=== PATIENT | male | born 1945 | race Caucasian/White ===

== ENCOUNTER 2022-02-12 15:14 | Emergency (ER) | payer OTHER ==
[2022-02-12 15:32] VITALS: BP 148/70
[2022-02-12] MEDS ORDERED: cephALEXin 250 MG CAPSULE PO STA (15:59)
[2022-02-12] MEDS ORDERED: SULFAMETH/TRIMETH DS 800/160 MG TABLET PO STA (15:59)
[2022-02-12] MEDS ORDERED: MUPIROCIN 2% OINT 1 GM TOP STA (15:59)
--- NOTE | 2022-02-12 16:02 | ED Physician Documentation ---
PD HPI WOUND RECHECK - Stated complaint Stated Complaint: RT LEG AND CHEST WOUND - Chief complaint Chief Complaint: Wound - Histroy obtained from History obtained from: Patient - Additional information Additional information: 76-year-old gentleman with poorly controlled diabetes although he just received a "talking to" from his doctor presents with some wounds that appear infected. He developed a right upper quadrant abdominal wound about a month ago which is improving, over the last 2 to 3 weeks has developed some weeping wounds on the anterior right medellin. He feels fine without systemic illness or fevers. Review of Systems Constitutional: reports: Reviewed and negative Ears: reports: Reviewed and negative Throat: reports: Reviewed and negative Cardiac: reports: Reviewed and negative Respiratory: reports: Reviewed and negative PD PAST MEDICAL HISTORY - Present Medications Home Medications: Ambulatory Orders Medication Instructions Recorded Confirmed Mupirocin 2% Oint [Bactroban 2% 1 applic TOP BID #50 gm 02/12/22 Oint] Sulfamethox/Trimeth 800/160 1 each PO BID #20 tablet 02/12/22 [Bactrim Ds 800/160] cephALEXin [Keflex] 500 mg PO Q6H #40 cap 02/12/22 - Allergies Allergies/Adverse Reactions: Allergies Allergy/AdvReac Type Severity Reaction Status Date / Time No Known Drug Allergies Allergy Verified 02/12/22 15:32 PD ED PE NORMAL - Vitals Vital signs reviewed: Yes - General General: Alert and oriented X 3, No acute distress - Abdomen Abdomen: Normal bowel sounds, Soft, Non tender, Other (There is a scabbed wound on the right upper quadrant abdominal wall without signs of infection or purulence.) - Extremities Extremities: Other (Scattered a few small ulcers with weeping purulent drainage and surrounding cellulitis to the anterior right medellin. Culture obtained during exam.) - Neuro Neuro: Alert and oriented X 3, Normal speech Results - Vitals Vitals: Vital Signs - 24 hr 02/12/22 15:21 Temperature 36.5 C Heart Rate 53 L Respiratory 14 Rate Blood Pressure 148/70 H O2 Saturation 98 PD MEDICAL DECISION MAKING - ED course ED course: 76-year-old gentleman with multiple comorbidities presents with some weeping cellulitis to the right lower extremity which was cultured and he is started on antibiotics and counseled on wound carea pending culture completion. Departure - Departure Disposition: 01 Home, Self Care Clinical Impression: Cellulitis of leg without foot, right Condition: Good Record reviewed to determine appropriate education?: Yes Instructions: ED Infec Skin Cellulitis Prescriptions: Sulfamethox/Trimeth 800/160 [Bactrim Ds 800/160] 1 each PO BID #20 tablet Mupirocin 2% Oint [Bactroban 2% Oint] 1 applic TOP BID #50 gm cephALEXin [Keflex] 500 mg PO Q6H #40 cap Print Language: Welsh Comments: You were seen today for cellulitis, this is an infection of the skin. We are performing a wound culture, the results should be done in 48-72 hours. If antibiotic change is necessary we will call you. Return if worse in the meantime, especially if you develop increased pain, fevers, cannot keep down the medication. Otherwise follow-up with your physician in approximately 2-3 days. In the meantime apply the antibiotic once a day after cleansing and then a nonstick dressing such as Telfa from the drugstore and a wrap. Discharge Date/Time: 02/12/22 16:16
== END 2022-02-12 16:16 | disposition home or self-care (01) ==
LOC: ED 15:14
DX: L03.115 Cellulitis of right lower limb (principal)
CPT/HCPCS: 87070; 87077; 87205; 99283; A9270

== ENCOUNTER 2022-03-23 04:08 | Outpatient (CLI) | payer OTHER | END 2022-03-23 04:09 | disposition critical access hospital (66) | LOC: EMS 04:08 | DX: R06.00 Dyspnea, unspecified (principal); R05.9 Cough, unspecified; R07.89 Other chest pain | CPT/HCPCS: A0425; A0427 ==

== ENCOUNTER 2022-03-23 04:17 | Inpatient (IN) | payer OTHER ==
--- NOTE | 2022-03-23 04:31 | ED Physician Documentation ---
PD HPI DYSPNEA - Stated complaint Stated Complaint: SOA, COUGH - Chief complaint Chief Complaint: Resp - History obtained from History obtained from: Patient, EMS - Additional information Additional information: Patient is 76-year-old male presenting to the emergency department brought in by EMS with shortness of breath. Past medical significant for atrial fibrillation for which he takes a daily aspirin, diabetes, as well as a history of myasthenia gravis for which he is not currently on medication. Reports woke this morning with acute onset shortness of breath with cough. Reports he had chest discomfort 3/10 associated with coughing. Denies any fever at home. Denies any nausea, vomiting or diarrhea. Reports chronic lower extremity edema for the last few years but denies any acute leg swelling. Denies any history of COPD or heart failure. EMS report initial oxygen saturations in the 70s on room air. He was started on a nonrebreather for oxygen support prior to arrival. Review of Systems Ten Systems: 10 systems reviewed and negative Constitutional: denies: Fever Eyes: denies: Loss of vision Ears: denies: Loss of hearing Nose: denies: Rhinorrhea / runny nose Throat: denies: Dental pain / toothache Cardiac: reports: Pedal edema Respiratory: reports: Dyspnea, Cough. denies: Hemoptysis, Wheezing GI: denies: Abdominal Pain, Nausea, Vomiting, Constipation, Diarrhea : denies: Dysuria PD PAST MEDICAL HISTORY - Present Medications Home Medications: Ambulatory Orders Medication Instructions Recorded Confirmed Mupirocin 2% Oint [Bactroban 2% 1 applic TOP BID #50 gm 02/12/22 Oint] Sulfamethox/Trimeth 800/160 1 each PO BID #20 tablet 02/12/22 [Bactrim Ds 800/160] cephALEXin [Keflex] 500 mg PO Q6H #40 cap 02/12/22 - Allergies Allergies/Adverse Reactions: Allergies Allergy/AdvReac Type Severity Reaction Status Date / Time Penicillins AdvReac Headache Verified 03/23/22 04:25 PD ED PE NORMAL - Vitals Vital signs reviewed: Yes - General General: Alert and oriented X 3 - HEENT HEENT: Atraumatic, PERRL - Neck Neck: Supple, no meningeal sign - Cardiac Cardiac: Strong equal pulses, Other (Irregularly irregular pulses.) - Respiratory Respiratory: Other (Bi basilar rales) - Abdomen Abdomen: Normal bowel sounds, Non tender - Male Male : Deferred - Rectal Rectal: Deferred - Derm Derm: Normal color - Extremities Extremities: No deformity - Neuro Neuro: Alert and oriented X 3, drafter heating and ventilating 2-12 intact, No motor deficit, No sensory deficit, Normal speech - Psych Psych: Normal mood Results - Vitals Vitals: Vital Signs - 24 hr 03/23/22 03/23/22 04:20 06:24 Temperature 36.1 C L Heart Rate 81 80 Respiratory 23 21 Rate Blood Pressure 161/100 H 147/78 H O2 Saturation 95 94 Oxygen O2 Source Nasal cannula - EKG (time done) 0421 Rate: Rate (enter#) (93) Rhythm: Atrial fibrillation Cameron: Normal Intervals: Normal WA, LBBB. No: Prolonged QT Ischemia: Non specific changes, Other (Frequent PVCs) Compare to prior EKG: Old EKG unavailable - Labs Labs: Laboratory Tests 03/23/22 03/23/22 03/23/22 04:20 04:35 04:35 WBC 12.9 H RBC 5.03 Hgb 15.2 Hct 47.9 MCV 95.2 H MCH 30.2 MCHC 31.7 L RDW 14.5 Plt Count 303 MPV 10.0 Neut # (Auto) 11.3 H Lymph # (Auto) 0.9 L Shasta # (Auto) 0.5 Eos # (Auto) 0.1 Baso # (Auto) 0.1 Absolute Nucleated RBC 0.00 Nucleated RBC % 0.0 PT INR VBG pH VBG pCO2 VBG pO2 VBG HCO3 VBG Total CO2 VBG O2 Saturation VBG Base Excess Sodium 143 Potassium 2.9 L Chloride 96 L Carbon Dioxide 36 H Anion Gap 11.0 BUN 23 H Creatinine 1.2 Estimated GFR (MDRD) 59 L Glucose 170 H Lactic Acid Calcium 9.8 Magnesium 1.9 Total Bilirubin 1.2 H AST 23 ALT 21 Alkaline Phosphatase 109 Troponin I High Sens B-Natriuretic Peptide Total Protein 8.4 H Albumin 4.0 Globulin 4.4 H Albumin/Globulin Ratio 0.9 L Lipase 40 TSH Nasal Adenovirus (PCR) NOT DETECTED Nasal B. parapertussis DNA (PCR) NOT DETECTED Nasal Coronavir 229E PCR NOT DETECTED Nasal Coronavir HKU1 PCR NOT DETECTED Nasal Coronavir NL63 PCR NOT DETECTED Nasal Coronavir OC43 PCR NOT DETECTED Nasal Enterovir/Rhinovir PCR NOT DETECTED Nasal Influenza B PCR NOT DETECTED Nasal Influenza A PCR NOT DETECTED Nasal Parainfluen 1 PCR NOT DETECTED Nasal Parainfluen 2 PCR NOT DETECTED Nasal Parainfluen 3 PCR NOT DETECTED Nasal Parainfluen 4 PCR NOT DETECTED Nasal RSV (PCR) NOT DETECTED Nasal B.pertussis DNA PCR NOT DETECTED Nasal C.pneumoniae (PCR) NOT DETECTED Veto Human Metapneumo PCR NOT DETECTED Nasal M.pneumoniae (PCR) NOT DETECTED Nasal SARS-CoV-2 (PCR) NOT DETECTED Ethyl Alcohol < 5.0 03/23/22 03/23/22 03/23/22 04:35 04:35 04:35 WBC RBC Hgb Hct MCV MCH MCHC RDW Plt Count MPV Neut # (Auto) Lymph # (Auto) Shasta # (Auto) Eos # (Auto) Baso # (Auto) Absolute Nucleated RBC Nucleated RBC % PT INR VBG pH VBG pCO2 VBG pO2 VBG HCO3 VBG Total CO2 VBG O2 Saturation VBG Base Excess Sodium Potassium Chloride Carbon Dioxide Anion Gap BUN Creatinine Estimated GFR (MDRD) Glucose Lactic Acid Calcium Magnesium Total Bilirubin AST ALT Alkaline Phosphatase Troponin I High Sens 26.5 H* B-Natriuretic Peptide 211 H Total Protein Albumin Globulin Albumin/Globulin Ratio Lipase TSH 1.59 Nasal Adenovirus (PCR) Nasal B. parapertussis DNA (PCR) Nasal Coronavir 229E PCR Nasal Coronavir HKU1 PCR Nasal Coronavir NL63 PCR Nasal Coronavir OC43 PCR Nasal Enterovir/Rhinovir PCR Nasal Influenza B PCR Nasal Influenza A PCR Nasal Parainfluen 1 PCR Nasal Parainfluen 2 PCR Nasal Parainfluen 3 PCR Nasal Parainfluen 4 PCR Nasal RSV (PCR) Nasal B.pertussis DNA PCR Nasal C.pneumoniae (PCR) Vteo Human Metapneumo PCR Nasal M.pneumoniae (PCR) Nasal SARS-CoV-2 (PCR) Ethyl Alcohol 03/23/22 03/23/22 03/23/22 04:53 04:53 04:53 WBC RBC Hgb Hct MCV MCH MCHC RDW Plt Count MPV Neut # (Auto) Lymph # (Auto) Shasta # (Auto) Eos # (Auto) Baso # (Auto) Absolute Nucleated RBC Nucleated RBC % PT 13.2 H INR 1.2 VBG pH 7.378 VBG pCO2 61.0 H VBG pO2 18.4 L VBG HCO3 35.1 H VBG Total CO2 37.0 H VBG O2 Saturation 27.8 L VBG Base Excess 7.6 H Sodium Potassium Chloride Carbon Dioxide Anion Gap BUN Creatinine Estimated GFR (MDRD) Glucose Lactic Acid 1.8 Calcium Magnesium Total Bilirubin AST ALT Alkaline Phosphatase Troponin I High Sens B-Natriuretic Peptide Total Protein Albumin Globulin Albumin/Globulin Ratio Lipase TSH Nasal Adenovirus (PCR) Nasal B. parapertussis DNA (PCR) Nasal Coronavir 229E PCR Nasal Coronavir HKU1 PCR Nasal Coronavir NL63 PCR Nasal Coronavir OC43 PCR Nasal Enterovir/Rhinovir PCR Nasal Influenza B PCR Nasal Influenza A PCR Nasal Parainfluen 1 PCR Nasal Parainfluen 2 PCR Nasal Parainfluen 3 PCR Nasal Parainfluen 4 PCR Nasal RSV (PCR) Nasal B.pertussis DNA PCR Nasal C.pneumoniae (PCR) Veto Human Metapneumo PCR Nasal M.pneumoniae (PCR) Nasal SARS-CoV-2 (PCR) Ethyl Alcohol PD MEDICAL DECISION MAKING - ED course Complexity details: reviewed results, re-evaluated patient, d/w patient, d/w family ED course: Patient is a 76-year-old male presenting to the emergency department with acute hypoxic respiratory failure. Presents via EMS who report patient had initial oxygen saturations in the 70s prior to arrival. He reports acute shortness of breath with cough that began this morning. His past medical is significant for diabetes, chronic atrial fibrillation, myasthenia gravis. [facility] Patient initially presented in A. fib with a rate of approximately 95. His EKG demonstrated a left bundle branch block as well as some other nonspecific ST and T wave abnormalities without Scarbossa Criterion. Shortly after arrival to the emergency department we were able to titrate the patient's oxygen down to 2 L nasal cannula. Chest x-ray demonstrates significant right-sided airspace disease. I did order for blood cultures and antibiotics including Rocephin and azithromycin. Patient's lab work demonstrated a leukocytosis with leftward shift as well as a hypokalemia. Potassium Repletion initiated in the emergency department. Patient also had a minimal elevation in high-sensitivity troponin on arrival to the emergency department. 2-hour repeat is pending at this time. COVID-negative. I had a discussion concerning goals of care with patient and patient's was present at bedside. They report that he is full code and would want all interventions. At this time I will be signing him out to the oncoming physician. Please see their documentation for further detail. - Critical Care Time(min): 31 Time Includes: Direct patient care, Reassess patient Data interpretation: Labs, Pulse ox, CXR Departure - Departure Clinical Impression: Respiratory failure, NSTEMI (non-ST elevated myocardial infarction), Pneumonia, Hypokalemia, Sepsis
[2022-03-23] MEDS ORDERED: cefTRIAXone 1 GM in SODIUM CHLORIDE 0.9% MINIBAG 100 ML IV STA (04:43)
[2022-03-23] MEDS ORDERED: AZITHROMYCIN INJ 500 MG in SODIUM CHLORIDE 0.9% 250 ML IV STA (04:43)
[2022-03-23 04:46] LABS: BASOPHILS # (AUTO) 0.1 10^3/uL (0.0-0.1); BASOPHILS % (AUTO) 0.5 %; EOSINOPHILS # (AUTO) 0.1 10^3/uL (0.0-0.7); HCT - HEMATOCRIT 47.9 % (42.0-52.0); HGB - HEMOGLOBIN 15.2 g/dL (14.0-18.0); LYMPHOCYTES # (AUTO) 0.9 10^3/uL (1.5-3.5); LYMPHOCYTES % (AUTO) 6.8 %; MEAN CORPUSCULAR HEMOGLOBIN 30.2 pg (27.0-31.0); MEAN CORPUSCULAR HGB CONC 31.7 g/dL (32.0-36.0); MEAN CORPUSCULAR VOLUME 95.2 fL (80.0-94.0); MONOCYTES # (AUTO) 0.5 10^3/uL (0.0-1.0); MONOCYTES % (AUTO) 3.6 %; NEUTROPHILS # (AUTO) 11.3 10^3/uL (1.5-6.6); NEUTROPHILS % (AUTO) 87.9 %; PLT - PLATELET COUNT 303 10^3/uL (130-450); RED BLOOD COUNT 5.03 10^6/uL (4.70-6.10); RED CELL DISTRIBUTION WIDTH 14.5 % (12.0-15.0); WHITE BLOOD COUNT 12.9 x10^3/uL (4.8-10.8)
[2022-03-23 05:04] LABS: ALBUMIN/GLOBULIN RATIO 0.9 (1.0-2.2); ALKALINE PHOSPHATASE 109 IU/L (42-121); ALT ALANINE AMINOTRANSFERASE 21 IU/L (10-60); AST ASPARTATE AMINOTRANSFERASE 23 IU/L (10-42); BILIRUBIN,TOTAL 1.2 mg/dL (0.2-1.0); BUN - BLOOD UREA NITROGEN 23 mg/dL (6-20); CALCIUM 9.8 mg/dL (8.5-10.3); CARBON DIOXIDE - CO2 36 mmol/L (21-32); CHLORIDE 96 mmol/L (101-111); CREATININE 1.2 mg/dL (0.6-1.2); ETOH - ETHANOL < 5.0 mg/dL; GFR - MDRD 59 (>89); GLUCOSE 170 mg/dL (70-100); LIPASE 40 U/L (22-51); MAGNESIUM 1.9 mg/dL (1.7-2.8); POTASSIUM 2.9 mmol/L (3.5-5.0); SODIUM 143 mmol/L (135-145); TOTAL PROTEIN 8.4 g/dL (6.7-8.2)
[2022-03-23] MEDS ORDERED: POTASSIUM CHLOR 10 MEQ/100 ML 10 MEQ/100 ML BAG IV STA (05:06)
[2022-03-23 05:10] LABS: INR 1.2 (0.8-1.2); PT - PROTHROMBIN TIME 13.2 secs (9.9-12.6)
[2022-03-23] MEDS ORDERED: SODIUM CHLORIDE 0.9% 500 ML IV STA (05:17)
[2022-03-23 05:19] LABS: VBG PH 7.378 (7.31-7.41)
[2022-03-23 05:20] LABS: VBG BASE EXCESS 7.6 mmol/L (-2 - +2); VBG HCO3 35.1 mmol/L (23-28); VBG OXYGEN SATURATION 27.8 % (60-80); VBG PO2 18.4 mmHg (25-47)
[2022-03-23] MEDS ORDERED: cefTRIAXone 1 GM VIAL ONE (05:26)
[2022-03-23] MEDS ORDERED: ONDANSETRON 4 MG/2 ML VIAL IVP STA (05:58)
[2022-03-23] MEDS ORDERED: MORPHINE 2 MG/ML CARPUJECT IVP STA ×2 (05:58→06:46)
[2022-03-23 06:06] LABS: B. PARAPERTUSSIS- RESP PCR PAN NOT DETECTED; B. PERTUSSIS- RESP PCR PANEL NOT DETECTED; C. PNEUMONIAE- RESP PCR PANEL NOT DETECTED; CORONAVIRUS 229E-RESP PCR NOT DETECTED; CORONAVIRUS HKU1-RESP PCR NOT DETECTED; CORONAVIRUS NL63-RESP PCR NOT DETECTED; CORONAVIRUS OC43-RESP PCR NOT DETECTED; HUMAN METAPNEUMOVIRUS NOT DETECTED; INFLUENZA A- RESP PCR PANEL NOT DETECTED; INFLUENZA B - RESP PCR PANEL NOT DETECTED; M. PNEUMONIAE- RESP PCR PANEL NOT DETECTED; PARAINFLUENZA VIRUS 1 NOT DETECTED; PARAINFLUENZA VIRUS 2 NOT DETECTED; PARAINFLUENZA VIRUS 3 NOT DETECTED; PARAINFLUENZA VIRUS 4 NOT DETECTED; RHINOVIRUS/ENTEROVIRUS NOT DETECTED; RSV- RESP PCR PANEL NOT DETECTED; SARS-CoV-2 -RESP PCR PANEL NOT DETECTED
--- NOTE | 2022-03-23 07:31 | XRAY Report ---
PROCEDURE: Chest 1 View X-Ray INDICATIONS: chest pain TECHNIQUE: One view of the chest was acquired. COMPARISON: None FINDINGS: Surgical changes and devices: None. Lungs and pleura: No pleural effusions or pneumothorax. Patchy consolidation in the right lung. Mediastinum: Mediastinal contours appear normal. Heart size is normal. Bones and chest wall: No suspicious bony lesions. Overlying soft tissues appear unremarkable. IMPRESSION: Extensive right lung pneumonia. Recommend follow-up imaging to resolution of the pneumonia to exclude underlying neoplastic process. Reviewed by: Laura Beltran MD, PhD on 03/23/2022 7:30 AM PDT Approved by: Laura Beltran MD, PhD on 03/23/2022 7:30 AM PDT Station ID: [id number]
[2022-03-23] MEDS ORDERED: ONDANSETRON 4 MG/2 ML VIAL IVP PRN (13:35)
[2022-03-23] MEDS ORDERED: SODIUM CHLORIDE FLUSH 0.9% 10 ML SYRINGE IVP PRN (13:35)
[2022-03-23] MEDS ORDERED: ACETAMINOPHEN 325 MG TABLET PO PRN (13:35)
[2022-03-23] MEDS ORDERED: POTASSIUM CHLORIDE 20 MEQ TABLET PO STA (13:39)
[2022-03-23] MEDS ORDERED: MAGNESIUM SULFATE 2 GRAM 2 GM/50 ML BAG IV ONE (13:40)
--- NOTE | 2022-03-23 13:41 | HISTORY & PHYSICAL EXAMINATION ---
Chief Complaint - Chief Complaint Chief Complaint: dyspnea, hypoxia, cough History of Present Illness - Admitted From Admitted From:: [facility] ED - History Obtained From Records Reviewed: yes History obtained from: patient - History of Present Illness HPI Comment/Other: Patient is a 76-year-old male with medical history significant for myasthenia gravis, diabetes mellitus type 2, prostate cancer status postradiation, hypertension, atrial fibrillation who presented to the ED with complaint of a nonproductive persistent cough which started in the middle of the night. He was also unable to catch his breath. It appeared he called the call line for his PCP and was advised to go to the emergency department. He was noted to have an oxygen saturation of 70% on room air. He had eaten a lot of ice cream that night prior to going to bed and thought the coughing was due to the late night eating. In the ED work-up included a chest x-ray which showed a right lung pneumonia. He also had a white blood cell count of 12.2. He explains that as a result of his myasthenia gravis, he has to be careful when he eats otherwise he would choke. As a result of the above he was presented for admission for further treatment. At bedside he is resting comfortably. He denies chest pain, abdominal pain, nausea or vomiting. He also denies fever or chills. He has significantly dry oral mucosa. History - Past Medical History Cardiovascular: reports: Hypertension, High cholesterol, Atrial fibrillation Respiratory: reports: CPAP use Neuro: reports: Peripheral neuropathy, Other (Myastenia gravis) Endocrine/Autoimmune: reports: Type 2 diabetes, Other : reports: Other Musculoskeletal: reports: Osteoarthritis, Chronic back pain MRSA Hx?: No Other Past Medical History: myasthenia gravis. prostate CA - Past Surgical History Ortho: reports: Spine surgery Other past surgical history: Right arm surgery, left foot surgery, right knee surgery, left shoulder surgery - Family & Social History Family History Comment/Other: Mother from complications of diabetes. His brother from an CT. Social History Notes: He lives at home with his . He does not consume tobacco products or recreational substances. He drinks alcohol occasionally. - POLST Patient has POLST: No POLST Status: Full Code Meds/Allgy - Home Medications Home Medications: Ambulatory Orders Medication Instructions Recorded Confirmed Mupirocin 2% Oint [Bactroban 2% 1 applic TOP BID #50 gm 02/12/22 Oint] Sulfamethox/Trimeth 800/160 1 each PO BID #20 tablet 02/12/22 [Bactrim Ds 800/160] cephALEXin [Keflex] 500 mg PO Q6H #40 cap 02/12/22 - Allergies Allergies/Adverse Reactions: Allergies Allergy/AdvReac Type Severity Reaction Status Date / Time Penicillins AdvReac Headache Verified 03/23/22 04:25 Review of Systems - Constitutional Constitutional: reports: Fatigue. denies: Fever, Chills, Weakness - Eyes Eyes: denies: Pain, Vision loss - Ears, Nose & Throat Ears, Nose & Throat: denies: Vertigo, Sore throat - Cardiovascular Cariovascular: reports: Irregular heart rate, Edema. denies: Chest pain - Respiratory Respiratory: reports: Cough, SOB at rest. denies: Sputum production - Gastrointestinal Gastrointestinal: reports: Abdominal distention. denies: Abdominal pain, Constipation, Diarrhea, Nausea, Vomiting - Genitourinary Genitourinary: denies: Dysuria, Frequency, Urgency, Hematuria - Musculoskeletal Musculoskeletal: reports: Back pain. denies: Muscle pain, Muscle aches - Integumentary Integumentary: denies: Rash, Pruritis, Lesions - Neurological Neurological: denies: Focal weakness, Headache - Psychiatric Psychiatric: denies: Depression, Anxiety - Endocrine Endocrine: denies: Polyuria, Polydypsia, Polyphagia - Hematologic/Lymphatic Hematologic/Lymphatic: denies: Anemia, Bruising, Petechiae Prior Level of Functionality: Patient is independent of activities of daily living. Exam - Vital Signs Vital Signs: Vital Signs x48h Pulse Resp BP Pulse Ox 03/23/22 12:36 64 19 112/84 H 97 03/23/22 10:19 72 19 93/65 93 03/23/22 08:26 83 21 120/71 96 03/23/22 06:24 80 21 147/78 H 94 - Physical Exam General Appearance: positive: Alert, Mild distress Eyes Bilateral: positive: PERRL, EOMI ENT: positive: Dry mucous membranes Neck: positive: No JVD, Trachea midline Respiratory: positive: Chest non-tender, Wheezes, Rales Cardiovascular: positive: Irregularly irregular. negative: Tachycardia Abdomen: positive: Non-tender, No organomegaly, Nml bowel sounds. negative: No distention, Guarding, Rebound Back: positive: Nml inspection Skin: positive: No rash, Warm, Dry Extremities: positive: Pedal edema (trace to +1) Neurologic/Psychiatric: positive: Oriented x3, Mood/affect nml Conclusion/Plan - Problem List (1) Pneumonia Conclusion/Plan: Right lung Aspiration vs Community Acquired Patient has risk of aspiration due to Myastenia gravis WBC 12.2. Blood cultures pending On Rocephin, Azithromycin and Flagyl (2) Acute respiratory failure with hypoxia Conclusion/Plan: Likely 2/2 pneumonia O2Sat at presentation was 70% on r/a Currently on 2L O2 via nasal canula with O2Sat of 95% On antibiotics for pneumonia (3) Myasthenia gravis Conclusion/Plan: On pyridostigmine 60mg po bid (4) Atrial fibrillation Conclusion/Plan: normal rate Not on any medication (5) Diabetes mellitus Conclusion/Plan: Carb-controlled diet SSI. Accu check qachs Qualifiers: Diabetes mellitus type: type 2 (6) Elevated troponin I level Conclusion/Plan: Likely demand ischemia from respiratory failure and hypoxia Trop trend was 26.5>>31>>46.1. Patient denies any chest pain or angina equivalen ce On baby aspirin daily, atorvastatin and losartan - Lab Results Fish Bones: 03/23/22 04:35 03/23/22 04:35 Core Measures - DVT/VTE - Prophylaxis VTE/DVT Device ordered at admit?: Yes VTE/DVT Prophylaxis med ordered at admit?: Yes
[2022-03-23] MEDS ORDERED: HYDROmorphone 1 MG/ML CARPUJECT IVP STA (13:55)
[2022-03-23 14:47] LABS: BILIRUBIN,URINE NEGATIVE (NEGATIVE); GLUCOSE, URINE (UA) NEGATIVE (NEGATIVE); KETONES,URINE (UA) NEGATIVE (NEGATIVE); LEUKOCYTE ESTERASE, URINE NEGATIVE (NEGATIVE); NITRITE,URINE NEGATIVE (NEGATIVE); OCCULT BLOOD,URINE TRACE-INTA (NEGATIVE); PH,URINE 5.5 PH (5.0-7.5); PROTEIN,URINE NEGATIVE (NEGATIVE); UROBILINOGEN,URINE 2 E.U./dL (NORMAL)
[2022-03-23 14:51] LABS: CLARITY,URINE CLEAR (CLEAR)
[2022-03-23] MEDS: metroNIDAZOLE 500 MG/100 ML 500 MG/100 ML BAG IV SCH ×2 (16:51→23:30)
[2022-03-23] MEDS: SODIUM CHLORIDE FLUSH 0.9% 10 ML SYRINGE IVP SCH ×2 (16:52→23:31)
[2022-03-23] MEDS: INSULIN ASPART 300 UNIT/3 ML PEN SUBQ SCH ×2 (17:00→23:27)
[2022-03-23] MEDS: ATORVASTATIN 40 MG TABLET PO SCH (23:27)
[2022-03-23] MEDS: GABAPENTIN 300 MG CAPSULE PO SCH (23:27)
[2022-03-24 05:19] LABS: BASOPHILS # (AUTO) 0.1 10^3/uL (0.0-0.1); BASOPHILS % (AUTO) 0.6 %; EOSINOPHILS # (AUTO) 0.3 10^3/uL (0.0-0.7); EOSINOPHILS % (AUTO) 2.4 %; HCT - HEMATOCRIT 36.4 % (42.0-52.0); HGB - HEMOGLOBIN 11.8 g/dL (14.0-18.0); LYMPHOCYTES # (AUTO) 1.2 10^3/uL (1.5-3.5); MEAN CORPUSCULAR HEMOGLOBIN 29.9 pg (27.0-31.0); MEAN CORPUSCULAR HGB CONC 32.4 g/dL (32.0-36.0); MEAN CORPUSCULAR VOLUME 92.4 fL (80.0-94.0); MEAN PLATELET VOLUME 10.2 fL (7.4-11.4); MONOCYTES % (AUTO) 7.7 %; NEUTROPHILS # (AUTO) 9.7 10^3/uL (1.5-6.6); NEUTROPHILS % (AUTO) 79.1 %; PLT - PLATELET COUNT 251 10^3/uL (130-450); RED BLOOD COUNT 3.94 10^6/uL (4.70-6.10); RED CELL DISTRIBUTION WIDTH 14.6 % (12.0-15.0); WHITE BLOOD COUNT 12.3 x10^3/uL (4.8-10.8)
[2022-03-24] MEDS: metroNIDAZOLE 500 MG/100 ML 500 MG/100 ML BAG IV SCH ×3 (05:24→21:15)
[2022-03-24 05:31] LABS: CALCIUM 8.5 mg/dL (8.5-10.3); CREATININE 1.1 mg/dL (0.6-1.2); POTASSIUM 2.8 mmol/L (3.5-5.0)
[2022-03-24] MEDS ORDERED: POTASSIUM CHLORIDE 20 MEQ TABLET PO STA (07:39)
--- NOTE | 2022-03-24 07:42 | PROVIDER PROGRESS NOTE ---
Assessment/Plan - Problem List (1) Pneumonia Assessment/Plan: Patient is currently breathing comfortably on room air with oxygen saturation 92%. White blood cell count was unchanged from yesterday at 12.3. He is afebrile. Continue Rocephin, azithromycin and Flagyl. An incentive spirometer provided. DuoNebs as needed. (2) Pleuritic chest pain Assessment/Plan: Patient complained of chest pain this morning. EKG showed atrial fibrillation. Troponin was normal at 19. He was given 3 doses of sublingual nitroglycerin with no improvement. This pain is likely pleuritic pain related to his pneumonia. He was given morphine with significant relief. Patient encouraged to continue using incentive spirometer. (3) Acute respiratory failure with hypoxia Assessment/Plan: Likely 2/2 Pneumonia. Improving/resolved. On room air with oxygen saturation 92%. (4) Myasthenia gravis Assessment/Plan: Will continue pyridostigmine at home dose (5) Atrial fibrillation Assessment/Plan: Regular rate with occasional bradycardia. Patient is not on rate controlling medication. He does not take a blood thinner. (6) Diabetes mellitus Qualifiers: Diabetes mellitus type: type 2 Assessment/Plan: Patient's metformin held. On sliding scale insulin with Accu-Cheks q. ACH S. (7) Elevated troponin I level Assessment/Plan: Likely secondary to demand ischemia due to hypoxia. Resolved. Last troponin check was 19.1. - Current Meds Current Meds: Current Medications Generic Name Dose Route Start Last Admin Trade Name Freq PRN Reason Stop Dose Admin Atorvastatin Calcium 20 mg 03/23/22 21:00 03/23/22 23:27 Atorvastatin 40 Mg Tablet PO 20 mg QPM ANA Administration Gabapentin 300 mg 03/23/22 21:00 03/23/22 23:27 Gabapentin 300 Mg Capsule PO 300 mg BID ANA Administration Metronidazole 500 mg in 100 mls @ 100 mls/hr 03/23/22 14:00 03/24/22 06:56 Flagyl 500 Mg/100 Ml IV Infused Q8H ANA Infusion Insulin Aspart 1 - 5 unit 03/23/22 17:00 03/23/22 23:27 Insulin Aspart 300 Unit/3 Ml Pen SUBQ Not Given 0800,1200,1700,2100 ANA Protocol Sodium Chloride 10 ml 03/23/22 17:00 03/23/22 23:31 Sodium Chloride Flush 0.9% 10 Ml Syringe IVP 10 ml 0100,0900,1700 ANA Administration - Lab Result Fish Bone Diagrams: 03/24/22 04:44 03/24/22 04:44 - Additional Planning My Orders: My Active Orders 03/23/22 13:35 Activity Orders [RC] Q2HR IO [RC] IOSHIFT Incentive Spirometry - RT [RC] .TID Initiate Bowel Care Protocol [RC] .protocol Initiate Line Care Protocol [RC] QSHIFT Initiate Personal Care Protoco [RC] .protocol Oxygen Therapy [RC] .PRN Telemetry- [RC] Q4HR Vital Signs [RC] 0800,1600,0000 Acetaminophen [Tylenol] 650 mg PO Q4HR PRN Ondansetron Inj [Zofran Inj] 4 mg IVP Q6HR PRN Sodium Chloride Flush 0.9% [Normal Saline Flush 0.9%] 10 ml IVP PRN PRN Code Status [OTHERS] Routine Condition of Patient [OTHERS] Routine DVT Prophylaxis [OTHERS] Routine 03/23/22 14:00 metroNIDAZOLE 500 MG/100 ML [Flagyl 500 mg/100 ml] 500 mg in 100 ml IV Q8H 03/23/22 16:01 Blood Glucose Checks - Eating [RC] 0800,1200,1700,2100 Initiate Hypoglycemia Protocol [RC] .protocol 03/23/22 Dinner Carb-controlled Diet [DIET] 03/23/22 17:00 Insulin Aspart [NovoLOG] 1 - 5 unit SUBQ 0800,1200,1700,2100 Sodium Chloride Flush 0.9% [Normal Saline Flush 0.9%] 10 ml IVP 0100,0900,1700 03/23/22 21:00 Atorvastatin [Lipitor] 20 mg PO QPM Gabapentin [Neurontin] 300 mg PO BID 03/24/22 07:39 Potassium Chloride [K-Dur] 20 meq PO ONCE STA 03/24/22 07:40 MAGNESIUM [CHEM] Stat 03/24/22 08:00 Potassium Chlor 10 Meq/100 ml [Potassium Chloride] 10 meq in 100 ml IV Q1H 03/24/22 09:00 Aspirin EC [Ecotrin] 81 mg PO DAILY Azithromycin Inj [Zithromax Inj] 500 mg Sodium Chloride 0.9% [Normal Saline 0.9%] 250 ml IV DAILY Enoxaparin [Lovenox] 40 mg SUBQ DAILY Losartan [Cozaar] 50 mg PO DAILY cefTRIAXone [Rocephin] 1 gm Sodium Chloride 0.9% Minibag [Normal Saline 0.9% Minibag] 100 ml IV DAILY 03/25/22 05:00 BMP - BASIC METABOLIC PANEL [CHEM] DAILYLAB CBC - COMP BLD CT W/AUTO DIFF [HEME] DAILYLAB MAGNESIUM [CHEM] DAILYLAB 03/26/22 05:00 BMP - BASIC METABOLIC PANEL [CHEM] DAILYLAB CBC - COMP BLD CT W/AUTO DIFF [HEME] DAILYLAB 03/27/22 05:00 BMP - BASIC METABOLIC PANEL [CHEM] DAILYLAB CBC - COMP BLD CT W/AUTO DIFF [HEME] DAILYLAB 03/28/22 05:00 BMP - BASIC METABOLIC PANEL [CHEM] DAILYLAB CBC - COMP BLD CT W/AUTO DIFF [HEME] DAILYLAB Subjective - Subjective Patient Reports: Other (He was resting comfortably in the bedside recliner at time of exam. Reports breathing better. Later in the morning he complained of chest pain.) Objective Vital Signs: Vital Signs - 24 hr 03/23/22 03/23/22 03/23/22 08:26 10:19 12:36 Temperature Heart Rate 83 72 64 Heart Rate [ Brachial] Heart Rate [ Monitoring electrodes] Respiratory 21 19 19 Rate Blood Pressure 120/71 93/65 112/84 H Blood Pressure [Right Brachial artery] O2 Saturation 96 93 97 03/23/22 03/23/22 03/24/22 15:00 20:49 00:00 Temperature 37.4 C 36.9 C 36.4 C L Heart Rate Heart Rate [ 67 85 51 L Brachial] Heart Rate [ Monitoring electrodes] Respiratory 18 21 18 Rate Blood Pressure Blood Pressure 143/77 H 127/60 112/66 [Right Brachial artery] O2 Saturation 95 96 98 03/24/22 03/24/22 05:00 07:35 Temperature 36.7 C 36.9 C Heart Rate Heart Rate [ 65 Brachial] Heart Rate [ 53 L Monitoring electrodes] Respiratory 18 16 Rate Blood Pressure Blood Pressure 130/76 126/67 [Right Brachial artery] O2 Saturation 95 97 Oxygen O2 Source Nasal cannula I&O (Last 24 Hrs): Intake and Output Totals x24h 03/22/22 03/23/22 03/24/22 23:59 23:59 23:59 Intake Total 2140 300 Balance 2140 300 General: Alert, Oriented x3, Moderate distress HEENT: PERRLA, EOMI Neck: Supple, No JVD Neuro: Alert, Non Focal, Oriented Times 3 Cardiovascular: Other (irregularly iregular, bradycar) Respiratory: Other (mild crackles, pleuritic chest pain) Abdomen: Normal bowel sounds, Soft, No tenderness, No masses Extremities: No clubbing, No cyanosis, No edema Skin: No rashes, No breakdown, No significant lesion - Results Results: Laboratory Results WBC 12.3 x10^3/uL (4.8-10.8) H 03/24/22 04:44 RBC 3.94 10^6/uL (4.70-6.10) L 03/24/22 04:44 Hgb 11.8 g/dL (14.0-18.0) L 03/24/22 04:44 Hct 36.4 % (42.0-52.0) L 03/24/22 04:44 MCV 92.4 fL (80.0-94.0) 03/24/22 04:44 MCH 29.9 pg (27.0-31.0) 03/24/22 04:44 MCHC 32.4 g/dL (32.0-36.0) 03/24/22 04:44 RDW 14.6 % (12.0-15.0) 03/24/22 04:44 Plt Count 251 10^3/uL (130-450) 03/24/22 04:44 MPV 10.2 fL (7.4-11.4) 03/24/22 04:44 Neut # (Auto) 9.7 10^3/uL (1.5-6.6) H 03/24/22 04:44 Lymph # (Auto) 1.2 10^3/uL (1.5-3.5) L 03/24/22 04:44 [place] # (Auto) 1.0 10^3/uL (0.0-1.0) 03/24/22 04:44 Eos # (Auto) 0.3 10^3/uL (0.0-0.7) 03/24/22 04:44 Baso # (Auto) 0.1 10^3/uL (0.0-0.1) 03/24/22 04:44 Absolute Nucleated RBC 0.00 x10^3/uL 03/24/22 04:44 Nucleated RBC % 0.0 /100WBC 03/24/22 04:44 PT 13.2 secs (9.9-12.6) H 03/23/22 04:53 INR 1.2 (0.8-1.2) 03/23/22 04:53 VBG pH 7.378 (7.31-7.41) 03/23/22 04:53 VBG pCO2 61.0 mmHg (41-51) H 03/23/22 04:53 VBG pO2 18.4 mmHg (25-47) L 03/23/22 04:53 VBG HCO3 35.1 mmol/L (23-28) H 03/23/22 04:53 VBG Total CO2 37.0 mmol/L (24-29) H 03/23/22 04:53 VBG O2 Saturation 27.8 % (60-80) L 03/23/22 04:53 VBG Base Excess 7.6 mmol/L (-2 - +2) H 03/23/22 04:53 Sodium 137 mmol/L (135-145) 03/24/22 04:44 Potassium 2.8 mmol/L (3.5-5.0) L 03/24/22 04:44 Chloride 96 mmol/L (101-111) L 03/24/22 04:44 Carbon Dioxide 32 mmol/L (21-32) 03/24/22 04:44 Anion Gap 9.0 (6-13) 03/24/22 04:44 BUN 21 mg/dL (6-20) H 03/24/22 04:44 Creatinine 1.1 mg/dL (0.6-1.2) 03/24/22 04:44 Estimated GFR (MDRD) 65 (>89) L 03/24/22 04:44 Glucose 122 mg/dL (70-100) H 03/24/22 04:44 Lactic Acid 1.8 mmol/L (0.5-2.2) 03/23/22 04:53 Calcium 8.5 mg/dL (8.5-10.3) 03/24/22 04:44 Magnesium 1.9 mg/dL (1.7-2.8) 03/23/22 04:35 Total Bilirubin 1.2 mg/dL (0.2-1.0) H 03/23/22 04:35 AST 23 IU/L (10-42) 03/23/22 04:35 ALT 21 IU/L (10-60) 03/23/22 04:35 Alkaline Phosphatase 109 IU/L (42-121) 03/23/22 04:35 Troponin I High Sens 46.1 ng/L (2.3-19.7) H* 03/23/22 13:53 B-Natriuretic Peptide 211 pg/mL (5-100) H 03/23/22 04:35 Total Protein 8.4 g/dL (6.7-8.2) H 03/23/22 04:35 Albumin 4.0 g/dL (3.2-5.5) 03/23/22 04:35 Globulin 4.4 g/dL (2.1-4.2) H 03/23/22 04:35 Albumin/Globulin Ratio 0.9 (1.0-2.2) L 03/23/22 04:35 Lipase 40 U/L (22-51) 03/23/22 04:35 TSH 1.59 uIU/mL (0.34-5.60) 03/23/22 04:35 Urine Color DARK YELLOW 03/23/22 14:35 Urine Clarity CLEAR (CLEAR) 03/23/22 14:35 Urine pH 5.5 PH (5.0-7.5) 03/23/22 14:35 Ur Specific [place] >=1.030 (1.002-1.030) H 03/23/22 14:35 Urine Protein NEGATIVE mg/dL (NEGATIVE) 03/23/22 14:35 Urine Glucose (UA) NEGATIVE mg/dL (NEGATIVE) 03/23/22 14:35 Urine Ketones NEGATIVE mg/dL (NEGATIVE) 03/23/22 14:35 Urine Occult Blood TRACE-INTA (NEGATIVE) 03/23/22 14:35 Urine Nitrite NEGATIVE (NEGATIVE) 03/23/22 14:35 Urine Bilirubin NEGATIVE (NEGATIVE) 03/23/22 14:35 Urine Urobilinogen 2 E.U./dL (NORMAL) H 03/23/22 14:35 Ur Leukocyte Esterase NEGATIVE (NEGATIVE) 03/23/22 14:35 Ur Microscopic Review NOT INDICATED 03/23/22 14:35 Urine Culture Comments NOT INDICATED 03/23/22 14:35 Nasal Adenovirus (PCR) NOT DETECTED 03/23/22 04:20 Nasal B. parapertussis DNA (PCR) NOT DETECTED 03/23/22 04:20 Nasal Coronavir 229E PCR NOT DETECTED 03/23/22 04:20 Nasal Coronavir HKU1 PCR NOT DETECTED 03/23/22 04:20 Nasal Coronavir NL63 PCR NOT DETECTED 03/23/22 04:20 Nasal Coronavir OC43 PCR NOT DETECTED 03/23/22 04:20 Nasal Enterovir/Rhinovir PCR NOT DETECTED 03/23/22 04:20 Nasal Influenza B PCR NOT DETECTED 03/23/22 04:20 Nasal Influenza A PCR NOT DETECTED 03/23/22 04:20 Nasal Parainfluen 1 PCR NOT DETECTED 03/23/22 04:20 Nasal Parainfluen 2 PCR NOT DETECTED 03/23/22 04:20 Nasal Parainfluen 3 PCR NOT DETECTED 03/23/22 04:20 Nasal Parainfluen 4 PCR NOT DETECTED 03/23/22 04:20 Nasal RSV (PCR) NOT DETECTED 03/23/22 04:20 Nasal B.pertussis DNA PCR NOT DETECTED 03/23/22 04:20 Nasal C.pneumoniae (PCR) NOT DETECTED 03/23/22 04:20 Veto Human Metapneumo PCR NOT DETECTED 03/23/22 04:20 Nasal M.pneumoniae (PCR) NOT DETECTED 03/23/22 04:20 Nasal SARS-CoV-2 (PCR) NOT DETECTED 03/23/22 04:20 Ethyl Alcohol < 5.0 mg/dL 03/23/22 04:35 ABX Reporting Has patient been on IV antibiotics over the past 48 hours?: Yes
--- NOTE | 2022-03-24 07:48 | PHARMACY PROGRESS NOTE ---
- Best Possible Medication History Admit Date and Time: 03/23/22 1335 Processed by: Pharmacy Medication History completed: Yes Patient Interview: Pt unable to participate Secondary Source(s): Pharmacy records, Insurance records As the person ultimately responsible for medication therapy, providers are able to order a medication from an existing home medication list in [facility] via the "Reconcile Routine" prior to Confirmation of that medication by technical sales support specialist. Such practice is discouraged except when the physician, in their clinical judgment, deems that a medical need exists for a medication without regard to previous use.
[2022-03-24] MEDS: INSULIN ASPART 300 UNIT/3 ML PEN SUBQ SCH ×4 (07:49→21:12)
[2022-03-24] MEDS ORDERED: BENZOCAINE/MENTHOL LOZENGE MM PRN (08:16)
[2022-03-24] MEDS: ENOXAPARIN 40 MG/0.4 ML SYRINGE SUBQ SCH (08:53)
[2022-03-24] MEDS: GABAPENTIN 300 MG CAPSULE PO SCH ×2 (08:53→21:11)
[2022-03-24] MEDS: ASPIRIN EC 81 MG TABLET PO SCH (08:53)
[2022-03-24] MEDS: LOSARTAN 50 MG TABLET PO SCH (08:53)
[2022-03-24] MEDS: SODIUM CHLORIDE FLUSH 0.9% 10 ML SYRINGE IVP SCH ×2 (08:54→17:00)
[2022-03-24] MEDS: cefTRIAXone 1 GM in SODIUM CHLORIDE 0.9% MINIBAG 100 ML IV SCH (08:54)
[2022-03-24] MEDS: POTASSIUM CHLOR 10 MEQ/100 ML 10 MEQ/100 ML BAG IV SCH ×4 (08:54→12:59)
[2022-03-24] MEDS: AZITHROMYCIN INJ 500 MG in SODIUM CHLORIDE 0.9% 250 ML IV SCH (09:52)
[2022-03-24] MEDS: NITROGLYCERIN SL 0.4 MG TABLET SL PRN ×3 (10:35→11:20)
[2022-03-24] MEDS ORDERED: PYRIDOSTIGMINE BROMIDE 60 MG PO SCH (11:00)
[2022-03-24] MEDS ORDERED: MORPHINE 2 MG/ML CARPUJECT IVP PRN (11:28)
[2022-03-24] MEDS: PYRIDOSTIGMINE BROMIDE 60 MG PO SCH ×2 (12:20→21:12)
[2022-03-24] MEDS ORDERED: IPRATROPIUM/ALBUTEROL 3 ML NEB INH PRN (14:14)
[2022-03-24] MEDS: ATORVASTATIN 40 MG TABLET PO SCH (21:11)
[2022-03-25] MEDS: SODIUM CHLORIDE FLUSH 0.9% 10 ML SYRINGE IVP SCH ×2 (00:25→08:08)
[2022-03-25 05:17] LABS: BASOPHILS # (AUTO) 0.1 10^3/uL (0.0-0.1); BASOPHILS % (AUTO) 0.5 %; EOSINOPHILS # (AUTO) 0.4 10^3/uL (0.0-0.7); EOSINOPHILS % (AUTO) 3.3 %; HCT - HEMATOCRIT 36.2 % (42.0-52.0); HGB - HEMOGLOBIN 12.2 g/dL (14.0-18.0); LYMPHOCYTES # (AUTO) 1.1 10^3/uL (1.5-3.5); LYMPHOCYTES % (AUTO) 10.5 %; MEAN CORPUSCULAR HEMOGLOBIN 30.8 pg (27.0-31.0); MEAN CORPUSCULAR HGB CONC 33.7 g/dL (32.0-36.0); MEAN CORPUSCULAR VOLUME 91.4 fL (80.0-94.0); MONOCYTES # (AUTO) 1.1 10^3/uL (0.0-1.0); MONOCYTES % (AUTO) 10.2 %; NEUTROPHILS # (AUTO) 7.9 10^3/uL (1.5-6.6); NEUTROPHILS % (AUTO) 75.1 %; PLT - PLATELET COUNT 223 10^3/uL (130-450); RED BLOOD COUNT 3.96 10^6/uL (4.70-6.10); RED CELL DISTRIBUTION WIDTH 14.3 % (12.0-15.0); WHITE BLOOD COUNT 10.5 x10^3/uL (4.8-10.8)
[2022-03-25 05:27] LABS: CALCIUM 8.6 mg/dL (8.5-10.3); MAGNESIUM 1.9 mg/dL (1.7-2.8); POTASSIUM 2.6 mmol/L (3.5-5.0)
[2022-03-25] MEDS: metroNIDAZOLE 500 MG/100 ML 500 MG/100 ML BAG IV SCH ×2 (06:36→14:22)
[2022-03-25] MEDS ORDERED: POTASSIUM CHLORIDE 20 MEQ TABLET PO STA ×2 (07:28→14:06)
[2022-03-25] MEDS: INSULIN ASPART 300 UNIT/3 ML PEN SUBQ SCH ×2 (07:50→11:20)
[2022-03-25] MEDS: POTASSIUM CHLOR 10 MEQ/100 ML 10 MEQ/100 ML BAG IV SCH ×4 (08:04→11:56)
[2022-03-25] MEDS: cefTRIAXone 1 GM in SODIUM CHLORIDE 0.9% MINIBAG 100 ML IV SCH (08:25)
[2022-03-25] MEDS: AZITHROMYCIN INJ 500 MG in SODIUM CHLORIDE 0.9% 250 ML IV SCH (09:22)
[2022-03-25] MEDS: ENOXAPARIN 40 MG/0.4 ML SYRINGE SUBQ SCH (09:58)
[2022-03-25] MEDS: GABAPENTIN 300 MG CAPSULE PO SCH (09:58)
[2022-03-25] MEDS: ASPIRIN EC 81 MG TABLET PO SCH (09:58)
[2022-03-25] MEDS: PYRIDOSTIGMINE BROMIDE 60 MG PO SCH (09:58)
[2022-03-25] MEDS: LOSARTAN 50 MG TABLET PO SCH (09:59)
[2022-03-25 13:09] VITALS: BP 157/78
[2022-03-25 14:01] LABS: CALCIUM 8.8 mg/dL (8.5-10.3); POTASSIUM 3.2 mmol/L (3.5-5.0)
--- NOTE | 2022-03-25 14:07 | DISCHARGE SUMMARY ---
Discharge Summary Admit Date: 03/23/22 Discharge Date: 03/25/22 Discharging Provider: Isabel Drew Condition at Discharge: Stable Discharge Disposition: 01 Home, Self Care - DIAGNOSES Admission Diagnoses: Pneumonia Acute respiratory failure with hypoxia Myasthenia gravis Atrial fibrillation Diabetes mellitus Elevated troponin I level Discharge Diagnoses with Status of Each Condition: Pneumonia: Acute. Improving. Patient discharged with 5 days of bactrim DS Acute respiratory failure with hypoxia: Resolved Myasthenia gravis: Chronic. Continue home medication Atrial fibrillation: Chronic. Stable. Not on any medications Diabetes mellitus: Chronic. Stable. Continue home medications Elevated troponin I level: Acute. Likely 2/2 to demand ischemia from respiratory failure. Resolved - HPI History of Present Illness: Patient is a 76-year-old male with medical history significant for myasthenia gravis, diabetes mellitus type 2, prostate cancer status postradiation, hypertension, atrial fibrillation who presented to the ED with complaint of a nonproductive persistent cough which started in the middle of the night. He was also unable to catch his breath. It appeared he called the call line for his PCP and was advised to go to the emergency department. He was noted to have an oxygen saturation of 70% on room air. He had eaten a lot of ice cream that night prior to going to bed and thought the coughing was due to the late night eating. In the ED work-up included a chest x-ray which showed a right lung pneumonia. He also had a white blood cell count of 12.2. He explains that as a result of his myasthenia gravis, he has to be careful when he eats otherwise he would choke. As a result of the above he was presented for admission for further treatment. At bedside he is resting comfortably. He denies chest pain, abdominal pain, nausea or vomiting. He also denies fever or chills. He has significantly dry oral mucosa. - HOSPITAL COURSE Hospital Course: 76-year-old male who was admitted on 03/23/2022 with dyspnea, hypoxia and a cough. Work-up included a chest x-ray which showed right lung pneumonia. The patient was started on Rocephin, azithromycin and Flagyl. Over the course of his 2-day hospital stay his respiratory status improved significantly. Of discharge he was breathing comfortably on room air with oxygen saturation at 94% and a respiratory rate of 18. He was given an incentive spirometer which he has been using daily. White blood cell count improved from 12.9 down to 10.5. Upon discharge patient will be prescribed Bactrim DS to take 1 tablet p.o. twice daily x5 days. His potassium was as low was 2.6 during his hospital stay. By the time of discharge his last potassium check was 3.2. He was given an extra 40 mEq of potassium chloride prior to discharge. His potassium depletion is due to the medication he takes for his myasthenia gravis pyridostigmine. He is to take 60 mEq of potassium p.o. daily at home while taking the medication. He was discharged in stable condition. He may follow-up with his primary care physician as needed. - ALLERGIES Allergies/Adverse Reactions: Allergies Allergy/AdvReac Type Severity Reaction Status Date / Time Penicillins AdvReac Headache Verified 03/23/22 04:25 - MEDICATIONS Home Medications: Ambulatory Orders Medication Instructions Recorded Confirmed Aspirin Chewable [[place] 81 mg PO DAILY 03/24/22 03/24/22 Aspirin] Atorvastatin [Lipitor] 20 mg PO QPM 03/24/22 03/24/22 Chlorthalidone 50 mg PO DAILY 03/24/22 03/24/22 Cyanocobalamin (Vitamin B-12) 1,000 mcg PO DAILY 03/24/22 03/24/22 [Vitamin B-12] Furosemide [Lasix] 20 mg PO DAILY 03/24/22 03/24/22 Gabapentin [Neurontin] 300 mg PO BID 03/24/22 03/24/22 Losartan [Cozaar] 50 mg PO DAILY 03/24/22 03/24/22 Peg 400/Hypromellose/Glycerin 1 drops EACHEYE QID PRN 03/24/22 03/24/22 [Artificial Tears Drops] Potassium Chloride [Micro-K] 30 meq PO DAILY 03/24/22 03/24/22 Pyridostigmine [place] [Mestinon] 60 mg PO BID 03/24/22 03/24/22 metFORMIN [Glucophage] 500 mg PO BIDWM 03/24/22 03/24/22 Sulfamethox/Trimeth 800/160 1 tablet PO BID 5 Days #10 tablet 03/25/22 [Bactrim Ds] - PHYSICAL EXAM AT DISCHARGE General Appearance: positive: No acute distress, Alert Eyes Bilateral: positive: PERRL, EOMI ENT: positive: No signs of dehydration Neck: positive: No JVD, Trachea midline Respiratory: positive: Chest non-tender, No respiratory distress, Other (Coarse breath sounds) Cardiovascular: positive: Regular rate & rhythm, No murmur Abdomen: positive: Non-tender, No organomegaly, Nml bowel sounds, No distention. negative: Guarding, Rebound Back: positive: Nml inspection Skin: positive: Color nml, No rash, Warm, Dry Extremities: positive: Non-tender, Full ROM, Nml appearance, No pedal edema Neurologic/Psychiatric: positive: Oriented x3, Mood/affect nml - LABS Result Diagrams: 03/25/22 05:02 03/25/22 13:47 - TIME SPENT Time Spent in Discharge (Minutes): 20
--- NOTE | 2022-03-25 14:12 | Discharge Plan ---
Discharge Plan Problem Reviewed?: Yes Disposition: Home, Self Care Condition: Stable Prescriptions: Sulfamethox/Trimeth 800/160 [Bactrim Ds] 1 tablet PO BID 5 Days #10 tablet Diet: Cardiac Activity Restrictions: Activity as Tolerated Weight Bearing: Full Weight Health Concerns: 76-year-old male who was admitted on 03/23/2022 with dyspnea, hypoxia and a cough. Work-up included a chest x-ray which showed right lung pneumonia. The patient was started on Rocephin, azithromycin and Flagyl. Over the course of his 2-day hospital stay his respiratory status improved si gnificantly. Of discharge he was breathing comfortably on room air with oxygen saturation at 94% and a respiratory rate of 18. He was given an incentive spirometer which he has been using daily. White blood cell count improved from 12.9 down to 10.5. Upon discharge patient will be prescribed Bactrim DS to take 1 tablet p.o. twice daily x5 days. His potassium was as low was 2.6 during his hospital stay. By the time of discharge his last potassium check was 3.2. He was given an extra 40 mEq of potassium chloride prior to discharge. His potassium depletion is due to the medication he takes for his myasthenia gravis pyridostigmine. He is to take 60 mEq of potassium p.o. daily at home while taking the medication. He was discharged in stable condition. He may follow-up with his primary care stacia medina as needed. No Smoking: If you smoke, Please STOP! Call for help.
--- NOTE | 2022-04-13 07:35 | ED Physician Documentation ---
ED Addendum - Addendum Addendum: 04/13/22 07:33 Upon change of shift, the patient is stable with just nasal cannula maintaining oxygenation. The patient had a pending repeat troponin which showed minimal elevation from 31-46. More likely stress myocardial injury related to the hypoxia. His vitals are good and his lactate was normal so no indication of sepsis per se. The patient maintains in a stable condition pending the hospitalist admission that had already been arranged by the prior physician. Once beds became available on the floor due to discharges, the hospitalist then wrote orders and the patient was transferred to the floor for further care. Disposition: The patient was placed in the hospital in stable condition. Diagnoses: 1. Respiratory failure, improving 2. Pneumonia 3. Respiratory distress 4. Hypokalemia
== END 2022-03-25 15:13 | disposition home or self-care (01) | DRG 193 ==
LOC: EDUNIT# → ED 04:17 → MS2 13:35
PROVIDERS: ADMIT Internal Medicine; ATTEND Internal Medicine
DX: J18.9 Pneumonia, unspecified organism (principal); J96.01 Acute respiratory failure with hypoxia; I48.20 Chronic atrial fibrillation, unspecified; I24.8 Other forms of acute ischemic heart disease; G70.00 Myasthenia gravis without (acute) exacerbation; G89.29 Other chronic pain; M19.90 Unspecified osteoarthritis, unspecified site; M54.9 Dorsalgia, unspecified; E11.42 Type 2 diabetes mellitus with diabetic polyneuropathy; E78.00 Pure hypercholesterolemia, unspecified; E87.6 Hypokalemia; R77.8 Other specified abnormalities of plasma proteins; Z20.822 Contact with and (suspected) exposure to COVID-19; Z79.84 Long term (current) use of oral hypoglycemic drugs; Z82.49 Family history of ischemic heart disease and other diseases of the circulatory system; Z83.3 Family history of diabetes mellitus; Z85.46 Personal history of malignant neoplasm of prostate; Z88.0 Allergy status to penicillin; Z92.3 Personal history of irradiation
CPT/HCPCS: 36415; 71045; 80048; 80053; 80320; 81003; 82803; 83605; 83690; 83735; 83880; 84443; 84484; 85025; 85610; 87040; 87633; 93005; 94640; 96365; 96366; 96368; 96375; 96376; 99285; 99291; A9270; J1650; 81001; 87086

== ENCOUNTER 2023-03-13 05:07 | Emergency (ER) | payer OTHER ==
[2023-03-13] MEDS ORDERED: ACETAMINOPHEN 325 MG TABLET PO STA (05:42)
[2023-03-13 06:07] LABS: BASOPHILS # (AUTO) 0.1 10^3/uL (0.0-0.1); BASOPHILS % (AUTO) 0.5 %; EOSINOPHILS # (AUTO) 0.2 10^3/uL (0.0-0.7); HCT - HEMATOCRIT 41.7 % (42.0-52.0); HGB - HEMOGLOBIN 13.8 g/dL (14.0-18.0); LYMPHOCYTES # (AUTO) 0.8 10^3/uL (1.5-3.5); MEAN CORPUSCULAR HEMOGLOBIN 30.7 pg (27.0-31.0); MEAN CORPUSCULAR HGB CONC 33.1 g/dL (32.0-36.0); MEAN CORPUSCULAR VOLUME 92.7 fL (80.0-94.0); MEAN PLATELET VOLUME 9.9 fL (7.4-11.4); MONOCYTES # (AUTO) 1.3 10^3/uL (0.0-1.0); NEUTROPHILS # (AUTO) 13.3 10^3/uL (1.5-6.6); NEUTROPHILS % (AUTO) 85.1 %; PLT - PLATELET COUNT 213 10^3/uL (130-450); RED CELL DISTRIBUTION WIDTH 14.3 % (12.0-15.0); WHITE BLOOD COUNT 15.7 x10^3/uL (4.8-10.8)
[2023-03-13 06:17] LABS: ALBUMIN 3.6 g/dL (3.2-5.5); ALBUMIN/GLOBULIN RATIO 0.9 (1.0-2.2); BILIRUBIN,TOTAL 2.1 mg/dL (0.2-1.0); CALCIUM 8.7 mg/dL (8.5-10.3); CREATININE 1.1 mg/dL (0.6-1.2); POTASSIUM 2.6 mmol/L (3.5-5.0); TOTAL PROTEIN 7.4 g/dL (6.7-8.2)
[2023-03-13 07:12] LABS: B. PARAPERTUSSIS- RESP PCR PAN NOT DETECTED; B. PERTUSSIS- RESP PCR PANEL NOT DETECTED; C. PNEUMONIAE- RESP PCR PANEL NOT DETECTED; CORONAVIRUS 229E-RESP PCR NOT DETECTED; CORONAVIRUS HKU1-RESP PCR NOT DETECTED; CORONAVIRUS NL63-RESP PCR NOT DETECTED; CORONAVIRUS OC43-RESP PCR NOT DETECTED; HUMAN METAPNEUMOVIRUS NOT DETECTED; INFLUENZA A- RESP PCR PANEL NOT DETECTED; INFLUENZA B - RESP PCR PANEL NOT DETECTED; M. PNEUMONIAE- RESP PCR PANEL NOT DETECTED; PARAINFLUENZA VIRUS 1 NOT DETECTED; PARAINFLUENZA VIRUS 2 NOT DETECTED; PARAINFLUENZA VIRUS 3 NOT DETECTED; PARAINFLUENZA VIRUS 4 NOT DETECTED; RHINOVIRUS/ENTEROVIRUS DETECTED; RSV- RESP PCR PANEL NOT DETECTED; SARS-CoV-2 -RESP PCR PANEL NOT DETECTED
[2023-03-13] MEDS ORDERED: POTASSIUM CHLORIDE 20 MEQ TABLET PO STA (07:13)
[2023-03-13 07:23] VITALS: BP 130/58
--- NOTE | 2023-03-13 07:41 | ED Physician Documentation ---
History of Present Illness - Stated complaint Stated Complaint: FEVER/COUGH - Chief complaint Chief Complaint: Resp - History obtained from History obtained from: Patient - Additonal information Additional information: The patient comes to the emergency department chief complaint of fever, chills, body aches, sore throat, and cough that started yesterday morning. He states his has been sick with something similar but that he feels like he has a worse than she has. He denies any GI symptoms. He has a history of diabetes but states that he does not have any known cardiac or pulmonary issues. He is not a smoker. The patient states he has had pneumonia in the past and he just wanted me mostly to make sure that he does not have pneumonia today. He also has a history of hypokalemia and states he feels as though his potassium may be low again. He states he has a potassium replacement that he supposed to take twice a day but has only been taking it once a day. He is not sure how many milliequivalents his tablets are. The patient does note he has a history of sleep apnea and feels often as though he is not very well rested. He states he spends most of the day sleeping because he is still tired from the night. He does use a CPAP machine. PD PAST MEDICAL HISTORY - Past Medical History Cardiovascular: Hypertension, High cholesterol, Atrial fibrillation Respiratory: CPAP use Neuro: Peripheral neuropathy, Other (Myastenia gravis) Endocrine/Autoimmune: Type 2 diabetes, Other : Other Psych: None Musculoskeletal: Osteoarthritis, Chronic back pain - Past Surgical History Ortho: Spine surgery - Present Medications Home Medications: Ambulatory Orders Medication Instructions Recorded Confirmed Aspirin Chewable [St Jhonny 81 mg PO DAILY 03/24/22 03/24/22 Aspirin] Atorvastatin [Lipitor] 20 mg PO QPM 03/24/22 03/24/22 Chlorthalidone 50 mg PO DAILY 03/24/22 03/24/22 Cyanocobalamin (Vitamin B-12) 1,000 mcg PO DAILY 03/24/22 03/24/22 [Vitamin B-12] Furosemide [Lasix] 20 mg PO DAILY 03/24/22 03/24/22 Gabapentin [Neurontin] 300 mg PO BID 03/24/22 03/24/22 Losartan [Cozaar] 50 mg PO DAILY 03/24/22 03/24/22 Peg 400/Hypromellose/Glycerin 1 drops EACHEYE QID PRN 03/24/22 03/24/22 [Artificial Tears Drops] Potassium Chloride [Micro-K] 30 meq PO DAILY 03/24/22 03/24/22 metFORMIN [Glucophage] 500 mg PO BIDWM 03/24/22 03/24/22 pyRIDostigmine bromide [Mestinon] 60 mg PO BID 03/24/22 03/24/22 Sulfamethox/Trimeth 800/160 1 tablet PO BID 5 Days #10 tablet 03/25/22 [Bactrim Ds] - Allergies Allergies/Adverse Reactions: Allergies Allergy/AdvReac Type Severity Reaction Status Date / Time Penicillins AdvReac Headache Verified 03/13/23 05:41 - Social History Does the pt smoke?: No Smoking Status: Former smoker Does the pt drink ETOH?: Yes Does the pt have substance abuse?: No - Immunizations Immunizations are current?: Yes - POLST Patient has POLST: No POLST Status: Full Code PD ED PE NORMAL - Vitals Vital signs reviewed: Yes - General General: Alert and oriented X 3, No acute distress, Well developed/nourished - HEENT HEENT: Atraumatic, PERRL, EOMI, Moist mucous membranes - Neck Neck: Supple, no meningeal sign - Cardiac Cardiac: RRR, No murmur, Strong equal pulses - Respiratory Respiratory: No respiratory distress, Clear bilaterally - Abdomen Abdomen: Soft, Non tender, Non distended - Derm Derm: Warm and dry - Extremities Extremities: No deformity, No calf tenderness / cord, Other (Chronic appearing bilateral lower extremity edema with changes consistent with peripheral vascular disease bilateral lower extremities.) - Neuro Neuro: Alert and oriented X 3, instructional supervisor 2-12 intact, Normal speech - Psych Psych: Normal mood, Normal affect Results - Vitals Vitals: Vital Signs - 24 hr 03/13/23 03/13/23 05:39 07:21 Temperature 38.2 C H Heart Rate 74 70 Respiratory 19 16 Rate Blood Pressure 139/65 H 130/58 L O2 Saturation 92 94 If not protocol 2 : Oxygen Flow, liters/minute Oxygen O2 Source Nasal cannula Oxygen Flow Rate 2 - Labs Labs: Laboratory Tests 03/13/23 03/13/23 03/13/23 05:56 05:56 06:11 WBC 15.7 H RBC 4.50 L Hgb 13.8 L Hct 41.7 L MCV 92.7 MCH 30.7 MCHC 33.1 RDW 14.3 Plt Count 213 MPV 9.9 Neut # (Auto) 13.3 H Lymph # (Auto) 0.8 L Schley # (Auto) 1.3 H Eos # (Auto) 0.2 Baso # (Auto) 0.1 Absolute Nucleated RBC 0.00 Nucleated RBC % 0.0 Sodium 139 Potassium 2.6 L Chloride 98 L Carbon Dioxide 32 Anion Gap 9.0 BUN 21 H Creatinine 1.1 Estimated GFR (MDRD) 65 L Glucose 145 H Calcium 8.7 Total Bilirubin 2.1 H AST 23 ALT 20 Alkaline Phosphatase 94 Total Protein 7.4 Albumin 3.6 Globulin 3.8 Albumin/Globulin Ratio 0.9 L Lipase 31 Nasal Adenovirus (PCR) NOT DETECTED Nasal B. parapertussis DNA (PCR) NOT DETECTED Nasal Coronavir 229E PCR NOT DETECTED Nasal Coronavir HKU1 PCR NOT DETECTED Nasal Coronavir NL63 PCR NOT DETECTED Nasal Coronavir OC43 PCR NOT DETECTED Nasal Enterovir/Rhinovir PCR DETECTED A Nasal Influenza B PCR NOT DETECTED Nasal Influenza A PCR NOT DETECTED Nasal Parainfluen 1 PCR NOT DETECTED Nasal Parainfluen 2 PCR NOT DETECTED Nasal Parainfluen 3 PCR NOT DETECTED Nasal Parainfluen 4 PCR NOT DETECTED Nasal RSV (PCR) NOT DETECTED Nasal B.pertussis DNA PCR NOT DETECTED Nasal C.pneumoniae (PCR) NOT DETECTED Veto Human Metapneumo PCR NOT DETECTED Nasal M.pneumoniae (PCR) NOT DETECTED Nasal SARS-CoV-2 (PCR) NOT DETECTED - Rads (name of study) Chest x-ray Relevant Findings:: Final report received, See rad report (Cardiomegaly otherwise negative) PD Medical Decision Making - ED course Complexity details: reviewed results, re-evaluated patient, considered differential, d/w patient ED course: The patient was worked up with laboratory studies, chest x-ray, and respiratory PCR panel. He was found to have moderate leukocytosis of 15 and moderate hypokalemia at 2.6. He was treated for his hypokalemia here in the ED. Chest x-ray was unremarkable for acute findings. The respiratory PCR panel was positive for enterovirus/rhinovirus. I discussed with the patient that he has a viral illness and will likely have symptoms for the next couple of weeks. However, no antibiotics are indicated at this time. We discussed fever control at home and the need to drink plenty of fluids. We have discussed the need for return to the ED, should the patient feel that his respiratory status or his general level of illness is significantly worsening. Otherwise, the patient has primary care through the [facility] and will follow-up with them. Departure - Departure Disposition: 01 Home, Self Care Clinical Impression: Acute viral syndrome Condition: Stable Instructions: ED Viral Syndrome Comments: Your labs did show a low potassium, which you have had before. Your white blood cell count was somewhat elevated, consistent with the illness you currently have. Your chest x-ray showed no pneumonia whatsoever. Your viral panel came back positive for rhinovirus, which we have been seeing quite a bit of over the late winter and through the spring. Generally, this causes a cold-like illness, but this season, it has been a little more severe with an influenza type of illness. This can include body aches, fevers, chills, sore throat, cough, and some difficulty breathing. In general, because it is a viral illness, it would be expected to pass on its own, but may take 1 to 2 weeks. Generally, the worst of the symptoms pass in the first week and the remainder resolve over the following week. You may take ibuprofen 600 mg every 6 hours and Tylenol/acetaminophen 650 mg every 4 hours, as needed for fevers. These medications are unrelated and will not cause harm if taken together. You should also go back to taking your potassium twice a day for the next couple of weeks and then have your primary doctor recheck your level to see how it is doing. You may take the medication that you have been taking at home for the cough, since it has been working well. If you feel that your CPAP is not generally improving the quality of your sleep, please talk to your doctor about further options for your sleep apnea. If you begin feeling as though your breathing is steadily worsening or that your general level of illness is becoming significantly more severe, please return to the emergency department for reevaluation.
--- NOTE | 2023-03-13 08:02 | XRAY Report ---
PROCEDURE: Chest 1 View X-Ray INDICATIONS: SOA TECHNIQUE: One view of the chest was acquired. COMPARISON: Chest x-ray, 03/23/2022. FINDINGS: Surgical changes and devices: None. Lungs and pleura: Mildly increased pulmonary vascularity. No pleural effusions or pneumothorax. Mediastinum: Mediastinal contours appear normal. Heart size is mildly increased. Bones and chest wall: No suspicious bony lesions. Overlying soft tissues appear unremarkable. IMPRESSION: Cardiomegaly. Mildly increased pulmonary vascularity suggesting CHF. No significant discrepancy with the primary interpretation. Reviewed by: Victoriano Edwards MD on 03/13/2023 8:01 AM PDT Approved by: Victoriano Edwards MD on 03/13/2023 8:01 AM PDT Station ID: [id number]
== END 2023-03-13 07:49 | disposition home or self-care (01) ==
LOC: ED 05:07
DX: B34.9 Viral infection, unspecified (principal); I10 Essential (primary) hypertension; E78.00 Pure hypercholesterolemia, unspecified; I48.91 Unspecified atrial fibrillation; E11.42 Type 2 diabetes mellitus with diabetic polyneuropathy; Z20.822 Contact with and (suspected) exposure to COVID-19; Z87.891 Personal history of nicotine dependence; Z79.82 Long term (current) use of aspirin; Z79.899 Other long term (current) drug therapy; Z79.84 Long term (current) use of oral hypoglycemic drugs
CPT/HCPCS: 36415; 80053; 83690; 85025; 87633; 99283; 99284

== ENCOUNTER 2023-07-01 04:05 | Emergency (ER) | payer OTHER ==
[2023-07-01 04:40] VITALS: BP 0/0; O2SAT 0
--- NOTE | 2023-07-01 04:44 | ED Physician Documentation ---
History of Present Illness - Stated complaint Stated Complaint: UNRESPONSIVE - Chief complaint Chief Complaint: Neuro - History obtained from History obtained from: Other (Medical floor staff) - Additonal information Additional information: The patient is brought into the emergency department via wheelchair after being found to have collapsed and be unresponsive and without pulses or respirations while visiting his who is an admitted patient on the medical floor. The staff from the medical floor state that they heard arguing coming from the room where the patient's is admitted and that the patient's was upset about being kept in the hospital. The patient was run and striding with her but at some point, stopped talking. A few minutes later, the began calling for somebody to come and help her and staff found that the patient Was pulseless and had only occasional, agonal respiratory efforts. The patient was wheeled over in the chair that he was sitting in and brought straight into the emergency department. Staff estimate that the patient likely had about a 10- minute downtime from becoming unresponsive to arrival in the emergency department. The patient is unable to offer any information. Nothing in terms of information is readily available regarding his medical history. PD PAST MEDICAL HISTORY - Past Medical History Cardiovascular: Hypertension, High cholesterol, Atrial fibrillation Respiratory: CPAP use Neuro: Peripheral neuropathy, Other (Myastenia gravis) Endocrine/Autoimmune: Type 2 diabetes, Other : Other Psych: None Musculoskeletal: Osteoarthritis, Chronic back pain - Past Surgical History Ortho: Spine surgery - Present Medications Home Medications: Ambulatory Orders Medication Instructions Recorded Confirmed Aspirin Chewable [St Jhonny 81 mg PO DAILY 03/24/22 03/24/22 Aspirin] Atorvastatin [Lipitor] 20 mg PO QPM 03/24/22 03/24/22 Chlorthalidone 50 mg PO DAILY 03/24/22 03/24/22 Cyanocobalamin (Vitamin B-12) 1,000 mcg PO DAILY 03/24/22 03/24/22 [Vitamin B-12] Furosemide [Lasix] 20 mg PO DAILY 03/24/22 03/24/22 Gabapentin [Neurontin] 300 mg PO BID 03/24/22 03/24/22 Losartan [Cozaar] 50 mg PO DAILY 03/24/22 03/24/22 Peg 400/Hypromellose/Glycerin 1 drops EACHEYE QID PRN 03/24/22 03/24/22 [Artificial Tears Drops] Potassium Chloride [Micro-K] 30 meq PO DAILY 03/24/22 03/24/22 metFORMIN [Glucophage] 500 mg PO BIDWM 03/24/22 03/24/22 pyRIDostigmine bromide [Mestinon] 60 mg PO BID 03/24/22 03/24/22 Sulfamethox/Trimeth 800/160 1 tablet PO BID 5 Days #10 tablet 03/25/22 [Bactrim Ds] - Allergies Allergies/Adverse Reactions: Allergies Allergy/AdvReac Type Severity Reaction Status Date / Time Penicillins AdvReac Headache Verified 03/13/23 05:41 - Social History Does the pt smoke?: No Smoking Status: Former smoker Does the pt drink ETOH?: Yes Does the pt have substance abuse?: No - Immunizations Immunizations are current?: Yes - POLST Patient has POLST: No POLST Status: Full Code PD ED PE NORMAL - General General: Other (Cyanotic, unresponsive patient with no signs of life.) - HEENT HEENT: Other (Pupils are fixed at about 4 mmAnd unreactive.) - Cardiac Cardiac: Other (No pulses or heart tones) - Respiratory Respiratory: Other (No respiratory effort. Lungs clear to auscultation bilaterally with bagging.) - Abdomen Abdomen: Soft - Derm Derm: Other (Dusky, cyanotic. Cap refill greater than 5 seconds.) - Extremities Extremities: Other (2+ pitting edema bilateral lower extremities.) - Neuro Neuro: Other (No neurologic response whatsoever. ) Results - Vitals Vitals: Vital Signs - 24 hr 07/01/23 04:10 Heart Rate 0 L Respiratory 0 L Rate Blood Pressure 0/0 L O2 Saturation 0 L Oxygen O2 Source Room air Procedures - Intubation - Major Provider: Emergency physician Blade: Garrison (4) Tube: Size-enter number (8.0), Cuffed, Marked at teeth-enter cm (23) Route: Oral Confirmation: Direct visualization, Bilateral breath sounds, No abdominal breath sound, End tidal CO2, Pulse ox Complications: No compications PD Medical Decision Making - ED course Complexity details: considered differential ED course: The patient arrived in the emergency department approximately 10 minutes after he became unresponsive. He was found to be pulseless and apneic. The patient was very large, and we immediately assembled staff to assist in moving him from the wheeled chair to the bed so we could begin resuscitative attempts. CPR and BVM respirations were immediately commenced while we got the patient on the monitor and set about starting an IV. This was at approximately 0405. The patient was immediately given a milligram of epinephrine upon IV placement. Upon the patient being placed on the monitor he was found to be in ventricular fibrillation and shocks were administered without success. CPR was resumed, and ultimately, despite multiple shocks, multiple rounds of epinephrine, and amiodarone, lidocaine, and bicarbonate, with high-quality CPR accompanying and intubation of the patient, his V-fib proved refractory. At this point, it had been nearly 35 minutes since the patient had become unresponsive and been without a perfusing rhythm and extensive efforts had been unsuccessful to achieve ROSC. As such, I did pronounce the patient at 0425. The floor staff reported that the patient's is not entirely cognizant and as such, I did reach out to the patient's daughter Ms. Adali Dougherty, at [phone]. She did not answer the phone, and so I did leave her message, relating that the patient had arrested and resuscitation attempts were unsuccessful and that I would like her to call the emergency department as soon as possible. The number to our department was provided on the message as well. The floor staff will inform the that the patient is in the emergency department and we will for now attempt to communicate with the patient's children and let them decide the best way to break the news to their mother. - Critical Care Time(min): 30 Comments: Critical care time is necessary, due to imminent , secondary to cardiac arrest. Time Includes: Direct patient care, Reassess patient, Document care, Coordinate care, Family consult for tx dec (Attempts to notify family of patient ), See progress note Procedures included in critical care time: Ventilator mgmt, See progress note Departure - Departure Disposition: 20 Clinical Impression: Cardiac arrest Forms: PCP List
[2023-07-01] MEDS ORDERED: EPINEPHrine ABBOJECT 1 MG/10 ML SYRINGE IVP ONE (09:27)
[2023-07-01] MEDS ORDERED: AMIODARONE 150 MG/3 ML VIAL IV ONE (09:27)
[2023-07-01] MEDS ORDERED: LIDOCAINE 2% ABBOJECT 100 MG/5 ML SYRINGE IVP ONE (09:27)
[2023-07-01] MEDS ORDERED: SODIUM BICARBONATE ABBOJECT 50 MEQ/50 ML SYRINGE IVP ONE (09:27)
== END 2023-07-01 08:24 | disposition expired ==
LOC: ED 04:05
DX: I46.9 Cardiac arrest, cause unspecified (principal); I10 Essential (primary) hypertension; E11.9 Type 2 diabetes mellitus without complications; Z79.84 Long term (current) use of oral hypoglycemic drugs; Z87.891 Personal history of nicotine dependence
CPT/HCPCS: 31500; 92950; 99291; J0282